=== PATIENT | male | born 1950 | race Caucasian/White ===

== ENCOUNTER → 2019-05-27 11:23 | Outpatient (BNVA) | payer MEDICARE, MEDICAID, SELFPAY | PROVIDERS: Family Provider Nurse Practitioner Family; PCP Nurse Practitioner Family; Visit Provider Nurse Practitioner Family | DX: J32.9 Chronic sinusitis, unspecified (principal); E11.9 Type 2 diabetes mellitus without complications; E55.9 Vitamin D deficiency, unspecified; N40.0 Benign prostatic hyperplasia without lower urinary tract symptoms; E78.5 Hyperlipidemia, unspecified; R19.7 Diarrhea, unspecified | CPT/HCPCS: 80053; 80061; 82306; 83036; 85025 ==

== ENCOUNTER → 2019-06-06 13:33 | Outpatient (BNVA) | payer MEDICARE, MEDICAID, SELFPAY | PROVIDERS: Family Provider Nurse Practitioner Family; PCP Nurse Practitioner Family; Visit Provider Nurse Practitioner Family | DX: E78.5 Hyperlipidemia, unspecified (principal) | CPT/HCPCS: 80061 ==

== ENCOUNTER → 2019-06-07 16:15 | Outpatient (BNVA) | payer MEDICARE, MEDICAID, SELFPAY | PROVIDERS: Family Provider Nurse Practitioner Family; PCP Nurse Practitioner Family; Visit Provider Nurse Practitioner Family | DX: E78.5 Hyperlipidemia, unspecified (principal); N40.0 Benign prostatic hyperplasia without lower urinary tract symptoms; E55.9 Vitamin D deficiency, unspecified | CPT/HCPCS: 80053; 82306 ==

== ENCOUNTER → 2019-06-27 11:20 | Outpatient (BNVA) | payer MEDICARE, MEDICAID, SELFPAY | PROVIDERS: Family Provider Nurse Practitioner Family; PCP Nurse Practitioner Family; Visit Provider Family Medicine | DX: R09.89 Other specified symptoms and signs involving the circulatory and respiratory systems (principal) | CPT/HCPCS: 71046 ==

== ENCOUNTER → 2019-06-28 13:14 | Outpatient (BNVA) | payer MEDICARE, MEDICAID, SELFPAY | PROVIDERS: Family Provider Nurse Practitioner Family; PCP Nurse Practitioner Family; Visit Provider Nurse Practitioner Family | DX: R09.89 Other specified symptoms and signs involving the circulatory and respiratory systems (principal); J18.9 Pneumonia, unspecified organism; R79.89 Other specified abnormal findings of blood chemistry | CPT/HCPCS: 80053; 85025 ==

== ENCOUNTER → 2019-07-01 11:15 | Outpatient (BNVA) | payer MEDICARE, MEDICAID, SELFPAY | PROVIDERS: Family Provider Nurse Practitioner Family; PCP Nurse Practitioner Family; Visit Provider Nurse Practitioner Family | DX: R09.89 Other specified symptoms and signs involving the circulatory and respiratory systems (principal); J18.9 Pneumonia, unspecified organism; R79.89 Other specified abnormal findings of blood chemistry; R94.5 Abnormal results of liver function studies | CPT/HCPCS: 86308; 86705; 86706; 86709; 86803; 87340 ==

== ENCOUNTER 2019-07-12 07:03 | Outpatient (CLI) | payer MEDICARE, MEDICAID, SELFPAY ==
--- NOTE | 2019-07-12 07:15 | US_ITS ---
WS: [id number] ABDOMINAL ULTRASOUND LIMITED REASON FOR VISIT: elevated liver enzymes TECHNIQUE: Grayscale and Doppler ultrasound examination of the abdomen. FINDINGS: Pancreas: No abnormalities. Abdominal aorta and IVC: No abnormalities. Liver: Liver measures 17.0 cm in length. Normal hepatopedal portal flow. Gallbladder: Gallbladder wall thickness measures 0.2 mm. No stones Right kidney: Right kidney measures 9.9 cm x 5.2 cm x 4.6 cm. No hydronephrosis or stones US/US liver [id number] IMPRESSION: Normal right upper quadrant ultrasound The liver is upper limits of normal.
== END 2019-07-12 07:04 | disposition home or self-care (01) ==
LOC: RAD 07:03
PROVIDERS: Family Provider Nurse Practitioner Family; PCP Nurse Practitioner Family; Visit Provider Nurse Practitioner Family
DX: R79.89 Other specified abnormal findings of blood chemistry (principal)
CPT/HCPCS: 76705

== ENCOUNTER → 2019-07-13 09:08 | Outpatient (BNVA) | payer MEDICARE, MEDICAID, SELFPAY | PROVIDERS: Family Provider Nurse Practitioner Family; PCP Family Medicine; Visit Provider Urology | DX: R79.89 Other specified abnormal findings of blood chemistry (principal); R97.20 Elevated prostate specific antigen [PSA]; N40.1 Benign prostatic hyperplasia with lower urinary tract symptoms | CPT/HCPCS: 81001; 84153 ==

== ENCOUNTER → 2019-08-12 12:01 | Outpatient (BNVA) | payer MEDICARE, MEDICAID, SELFPAY | PROVIDERS: Family Provider Nurse Practitioner Family; PCP Family Medicine; Visit Provider Internal Medicine | DX: R79.89 Other specified abnormal findings of blood chemistry (principal) | CPT/HCPCS: 80053 ==

== ENCOUNTER 2019-08-23 12:40 | Outpatient (CLI) | payer MEDICARE, MEDICAID, SELFPAY ==
--- NOTE | 2019-08-23 12:43 | XR_ITS ---
WS: [id number] XR chest 2V* [id number] REASON FOR EXAM: Cough FINDINGS: The lung gordon are hyper aerated with decreased vascularity in flattenings hemidiaphragm a re seen. The heart was normal. No pneumonia, pleural effusion, pulmonary edema, are pneumothorax. There is arteriosclerotic changes in the arch of the aorta. XR/XR chest 2V* [id number] IMPRESSION: Obstructive pulmonary disease.
[2019-08-24 17:30] LABS: Cat Dander (E1) Ige <0.10 kU/L; Cat Dander Class 0; Dog Dander (E5) Ige <0.10 kU/L; Dog Dander Class 0; Elm (T8) Ige <0.10 kU/L; Elm Class 0; English Plantain (W9) Ige 0.11 kU/L; English Plantain Class 0/1; Immunoglobulin E 35 kU/L (<OR=114); Lamb'S Quarters (Goose Foot) 0.11 kU/L; Lamb'S Quarters Class 0/1; Maple (Box Elder) (T1) Ige <0.10 kU/L; Maple Class 0; Oak (T7) Ige 0.13 kU/L; Oak Class 0/1; Ragweeed Class 0/1; Rough Marsh Elder (W16) Ige <0.10 kU/L; Rough Marsh Elder Class 0
[2019-08-25 18:01] LABS: Alternaria Alternata (M6) Ige <0.10 kU/L; Alternaria Class 0; Bermuda Class 0/1; Bermuda Grass (G2) Ige 0.12 kU/L; D. Farinae Class 0; Dermatophagoides Class 0; Dermatophagoides Farinae (D2) <0.10 kU/L; Dermatophagoides Pteronyssinus <0.10 kU/L; House Dust (Greer) (H1) Ige <0.10 kU/L; House Dust (Hollister- Stier) <0.10 kU/L; House Dust Class 0; Johnson Grass (G10) Ige 0.11 kU/L; Johnson Grass Cl 0/1; June Grass Class 0; June Grass(Kentucky Blue) (G8) <0.10 kU/L; Meadow Fescue (G4) Ige 0.11 kU/L; Meadow Fescue Class 0/1; Mucor Racemosus Class 0; Orchard Grass (Cocksfoot) (G3) 0.11 kU/L; Penicillium Class 0; Penicillium Notatum (M1) Ige <0.10 kU/L; Perennial Rye Grass Class 0/1; Sweet Vernal Class 0/1; Sweet Vernal Grass (G1) Ige 0.14 kU/L; Timothy Grass (G6) Ige 0.11 kU/L; Timothy Grass Class 0/1
[2019-08-25 19:50] LABS: Aspergillus Fumigatus, Igg Ab, 12.2 mg/L (<=102)
== END 2019-08-23 12:41 | disposition home or self-care (01) ==
LOC: RAD 12:40
PROVIDERS: PCP Family Medicine; Visit Provider Internal Medicine Critical Care Medicine
DX: R05 Cough (principal); J44.9 Chronic obstructive pulmonary disease, unspecified
CPT/HCPCS: 71046; 82785; 86003

== ENCOUNTER 2019-09-15 08:10 | Outpatient (CLI) | payer MEDICARE, MEDICAID, SELFPAY ==
--- NOTE | 2019-09-15 13:02 | PFTS_ITS ---
Date of Study:09/15/19 Date of Dictation: MECHANICS: Forced vital capacity (FVC) is normal. Forced expiratory volume in one second (FEV1) is normal. FEV1/FVC is normal. FLOW VOLUME LOOP: Normal. LUNG VOLUMES: Total lung capacity (TLC) is normal. Residual volume (RV) is increased. DIFFUSING CAPACITY FOR CARBON MONOXIDE: Normal. INTERPRETATION: The pulmonary function tests are normal. Lung volumes are consistent with mild air trapping. Gas exchange (DLCO) is normal. MTDD
== END 2019-09-15 08:11 | disposition home or self-care (01) ==
LOC: RT 08:14
PROVIDERS: PCP Family Medicine; Visit Provider Internal Medicine Critical Care Medicine
DX: R05 Cough (principal)
CPT/HCPCS: 94010; 94726; 94729

== ENCOUNTER → 2019-11-17 10:43 | Outpatient (BNVA) | payer MEDICARE, MEDICAID, SELFPAY | PROVIDERS: PCP Family Medicine; Visit Provider Internal Medicine | DX: R05 Cough (principal); R30.0 Dysuria | CPT/HCPCS: 80053; 81003; 87077; 87086; 87186 ==

== ENCOUNTER → 2020-06-08 08:53 | Outpatient (BNVA) | payer MEDICARE, MEDICAID, SELFPAY | PROVIDERS: PCP Family Medicine; Visit Provider Internal Medicine | DX: R19.7 Diarrhea, unspecified (principal) | CPT/HCPCS: 83630; 87493; 87506 ==

== ENCOUNTER → 2020-10-17 10:40 | Outpatient (BNVA) | payer MEDICARE, MEDICAID, SELFPAY | PROVIDERS: PCP Family Medicine; Visit Provider Internal Medicine | DX: E11.9 Type 2 diabetes mellitus without complications (principal); Z12.5 Encounter for screening for malignant neoplasm of prostate; Z13.220 Encounter for screening for lipoid disorders; K21.9 Gastro-esophageal reflux disease without esophagitis; R97.20 Elevated prostate specific antigen [PSA]; R79.89 Other specified abnormal findings of blood chemistry; E78.5 Hyperlipidemia, unspecified; Z12.11 Encounter for screening for malignant neoplasm of colon | CPT/HCPCS: 80061; G0103 ==

== ENCOUNTER → 2020-11-19 09:03 | Outpatient (BNVA) | payer MEDICARE, MEDICAID, SELFPAY | PROVIDERS: PCP Family Medicine; Visit Provider Internal Medicine | DX: Z01.812 Encounter for preprocedural laboratory examination (principal); Z12.11 Encounter for screening for malignant neoplasm of colon; Z20.822 Contact with and (suspected) exposure to COVID-19 | CPT/HCPCS: 87635 ==

== ENCOUNTER 2020-11-26 08:20 | Day surgery (SDC) | payer MEDICARE, MEDICAID, SELFPAY ==
[2020-11-21 15:49] VITALS: BMI 22.0
[2020-11-26 08:54] VITALS: BP 148/84; PULSE 54; RESP 16; TEMP 36.3; O2SAT 96
--- NOTE | 2020-11-26 08:57 | ANES.PREANE2 ---
Pre-Anesthetic Assessment Pre-Anesthetic Assessment: Height/Weight: Height 1.93 m Weight 82.1 kg Preop Diagnosis: screen Proposed Procedure: Operation Date: 11/26/20 09:30 Proposed Procedures p Colonoscopy 86651 Z12.11(Not Applicable) - Jose Kessler MD Was Beta Hermes taken within 24 hours: N/A Was Clonidine taken within 24 hours: N/A Social: Social History: No alcohol and No tobacco Exam: Pre-Anes Outpt Exam: alert, oriented x 3, clear to auscultation bilaterally and regular rate & rhythm Airway: Submandibular: WNL Cervical ROM: WNL MP: 2 Dentition: Chipped Additional comments: [place] CV/HEM: CV/HEM: HTN GI: GI: GERD Metabolic: Metabolic: DM and Hyperlipidemia Anesthetic Plan: ASA status: 3 Anesthesia: MAC Risk of > 500 ml blood loss (7ml/kg in children): No PFSH Anesthesia PFSH: Medical History BPH NOS w ur obs/LUTS Diabetes mellitus Elevated PSA Erectile dysfunction Hyperlipidemia Low testosterone Vitamin D deficiency Family History Father , age 35 Stroke Grandmother Diabetes Denies family history of Clotting disorder Bleeding disorder Social History Smoking and tobacco status: never smoked Second hand smoke exposure: No Alcohol intake: never Lives independently: Yes Household members: children Marital status: Current occupational status: employed Current occupation: [employer] History of recent travel: No Current gender identity: Male Data Anesthesia Cardiac Studies: No Data to Display
--- NOTE | 2020-11-26 08:59 | P.HP_ITS ---
Same Day Surgery H&P Indication for Procedure/HPI DATE OF PROCEDURE: November 26, 2020 CHIEF COMPLAINT/INDICATIONFOR SURGICAL PROCEDURE: Diarrhea PREOP DIAGNOSIS: screen PLANNED PROCEDRUE: Operation Date: 11/26/20 09:30 Proposed Procedures p Colonoscopy 93147 Z12.11(Not Applicable) - Jose Kessler MD Medications/Allergies* Home Medications Medication Instructions Recorded Confirmed Type cholecalciferol (vitamin D3) 50 50 mcg PO DAILY 07/13/19 11/26/20 History mcg (2,000 unit) capsule multivitamin 1 tab PO DAILY 11/21/20 11/26/20 History tamsulosin 0.4 mg PO DAILY 11/21/20 11/26/20 History Allergies/Adverse Reactions Allergy/AdvReac Type Severity Reaction Status Date / Time No Known Allergies Allergy Verified 11/21/20 15:50 Pertinent History/Comorbid Conditions* Medical History (Updated 05/24/20 @ 11:26 by Jose Kessler MD) BPH NOS w ur obs/LUTS Diabetes mellitus Elevated PSA Erectile dysfunction Hyperlipidemia Low testosterone Vitamin D deficiency Family History (Updated 05/27/19 @ 10:06 by Mariela Dockery LPN, RT) Father, age 35 Diabetes Grandmother Stroke Father Denies family history of Clotting disorder Bleeding disorder Social History Smoking and tobacco status: never smoked Second hand smoke exposure: No Alcohol intake: never Lives independently: Yes Household members: children Marital status: Current occupational status: employed Current occupation: [employer] History of recent travel: No Current gender identity: Male Pertinent Exam Findings alert, oriented x 3, clear to auscultation bilaterally, regular rate & rhythm, operative site marked and procedure specific exam findings Recommendations Surgery/Procedure today Coding Level of Care Code Acute 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
[2020-11-26] MEDS: sodium chloride 0.9% 1,000 ML 30 ML IV (09:12)
[2020-11-26 09:46] VITALS: BP 90/54; PULSE 60; RESP 16; TEMP 36.1; O2SAT 94
[2020-11-26 09:52] VITALS: BP 106/55
[2020-11-26 10:10] VITALS: BP 137/91; PULSE 50; O2SAT 96
--- NOTE | 2020-11-26 15:33 | ANE.PACU2 ---
Inpatient post-anesthesia follow up: Airway intact: Yes Vital signs: Temperature 97 F Pulse Rate 50 Respiratory Rate 16 Blood Pressure 137/91 Pulse Oximetry 96 Oxygen Delivery Me thod Room Air Oxygen Flow Rate Fraction of Inspir ed Oxygen Hydration adequate: Yes Nausea and vomiting: No Pain level: 1 Mental status: Baseline
== END 2020-11-26 10:25 | disposition home or self-care (01) ==
PROVIDERS: PCP Internal Medicine; Visit Provider Internal Medicine
PROC: 0DJD8ZZ Inspection of Lower Intestinal Tract, Via Natural or Artificial Opening Endoscopic (ICD-10-PCS; CPT 45378; principal; 2020-11-26 09:30)
DX: R19.7 Diarrhea, unspecified (principal); K57.30 Diverticulosis of large intestine without perforation or abscess without bleeding; N40.1 Benign prostatic hyperplasia with lower urinary tract symptoms; N13.8 Other obstructive and reflux uropathy; E11.9 Type 2 diabetes mellitus without complications; E78.5 Hyperlipidemia, unspecified; E55.9 Vitamin D deficiency, unspecified; I10 Essential (primary) hypertension; K21.9 Gastro-esophageal reflux disease without esophagitis
CPT/HCPCS: 96360; G0121; J2704; J7030

== ENCOUNTER → 2021-01-14 11:17 | Outpatient (BNVA) | payer MEDICARE, MEDICAID, SELFPAY | PROVIDERS: PCP Internal Medicine; Visit Provider Urology | DX: N40.1 Benign prostatic hyperplasia with lower urinary tract symptoms (principal); R79.89 Other specified abnormal findings of blood chemistry; R97.20 Elevated prostate specific antigen [PSA] | CPT/HCPCS: 81003; 87077; 87086; 87184 ==

== ENCOUNTER → 2021-08-21 10:51 | Outpatient (BNVA) | payer MEDICARE, MEDICAID, SELFPAY | PROVIDERS: PCP Internal Medicine; Visit Provider Otolaryngology | DX: H66.91 Otitis media, unspecified, right ear (principal); H72.2X1 Other marginal perforations of tympanic membrane, right ear; H90.11 Conductive hearing loss, unilateral, right ear, with unrestricted hearing on the contralateral side | CPT/HCPCS: 99203 ==

== ENCOUNTER → 2021-09-23 09:34 | Outpatient (BNVA) | payer MEDICARE, MEDICAID, SELFPAY | PROVIDERS: PCP Internal Medicine; Visit Provider Otolaryngology | DX: H66.91 Otitis media, unspecified, right ear (principal); H72.2X1 Other marginal perforations of tympanic membrane, right ear; H90.11 Conductive hearing loss, unilateral, right ear, with unrestricted hearing on the contralateral side | CPT/HCPCS: 99213 ==

== ENCOUNTER → 2021-11-26 09:27 | Outpatient (BNVA) | payer MEDICARE, MEDICAID, SELFPAY | PROVIDERS: PCP Internal Medicine; Visit Provider Otolaryngology | DX: H72.2X1 Other marginal perforations of tympanic membrane, right ear (principal); H90.11 Conductive hearing loss, unilateral, right ear, with unrestricted hearing on the contralateral side; H66.91 Otitis media, unspecified, right ear | CPT/HCPCS: 99213 ==

== ENCOUNTER → 2022-02-21 08:57 | Outpatient (BNVA) | payer MEDICARE, MEDICAID, SELFPAY | PROVIDERS: PCP Internal Medicine; Visit Provider Otolaryngology | DX: H66.91 Otitis media, unspecified, right ear (principal); H72.2X1 Other marginal perforations of tympanic membrane, right ear; H90.11 Conductive hearing loss, unilateral, right ear, with unrestricted hearing on the contralateral side | CPT/HCPCS: 99213 ==

== ENCOUNTER → 2022-03-24 09:20 | Outpatient (BNVA) | payer MEDICARE, MEDICAID, SELFPAY | PROVIDERS: PCP Internal Medicine; Visit Provider Otolaryngology | DX: H66.91 Otitis media, unspecified, right ear (principal); H72.2X1 Other marginal perforations of tympanic membrane, right ear; H90.11 Conductive hearing loss, unilateral, right ear, with unrestricted hearing on the contralateral side | CPT/HCPCS: 99213 ==

== ENCOUNTER → 2022-04-23 11:16 | Outpatient (BNVA) | payer MEDICARE, MEDICAID, SELFPAY | PROVIDERS: PCP Internal Medicine; Visit Provider Otolaryngology | DX: H66.91 Otitis media, unspecified, right ear (principal); H72.2X1 Other marginal perforations of tympanic membrane, right ear; H90.11 Conductive hearing loss, unilateral, right ear, with unrestricted hearing on the contralateral side | CPT/HCPCS: 99213 ==

== ENCOUNTER → 2022-05-14 10:58 | Outpatient (BNVA) | payer MEDICARE, MEDICAID, SELFPAY | PROVIDERS: PCP Internal Medicine; Visit Provider Otolaryngology | DX: H66.91 Otitis media, unspecified, right ear (principal); H72.2X1 Other marginal perforations of tympanic membrane, right ear; H90.11 Conductive hearing loss, unilateral, right ear, with unrestricted hearing on the contralateral side | CPT/HCPCS: 99213 ==

== ENCOUNTER → 2022-05-27 09:21 | Outpatient (BNVA) | payer MEDICARE, MEDICAID, SELFPAY | PROVIDERS: PCP Internal Medicine; Visit Provider Otolaryngology | DX: H90.11 Conductive hearing loss, unilateral, right ear, with unrestricted hearing on the contralateral side (principal); H66.91 Otitis media, unspecified, right ear; H72.2X1 Other marginal perforations of tympanic membrane, right ear | CPT/HCPCS: 99213 ==

== ENCOUNTER 2022-06-16 15:25 | Outpatient (CLI) | payer MEDICARE, MEDICAID, SELFPAY ==
--- NOTE | 2022-06-16 16:30 | CT_ITS ---
WS: [id number] CT TEMPORAL BONES TECHNIQUE: Noncontrast CT of the temporal bones with coronal and sagittal reformatted images. CLINICAL INFORMATION: concerns for mastoiditis COMPARISON: None. DLP: 359.[address] scans at [facility] use at least one of these dose optimization techniques: automated e xposure control; mA and/or kV adjustment per patient size (includes targeted exams where dose is matc hed to clinical indication); or iterative reconstruction. FINDINGS: LEFT mastoid air cells well aerated. Partial opacification RIGHT mastoid tip. Mild mucosal thickening in the paranasal sinuses. Mild polypoid mucosal thickening in the nasal turbinates. Small retention cyst or polyp RIGHT maxillary sinus measuring 1.9 CM. Mild mucosal thickening in the LEFT g reater than RIGHT maxillary sinuses. Small amount of fluid in the sphenoid sinuses. Normal posterior nasopharynx. Vascular calcification. RIGHT: Partial opacification RIGHT mastoid air cells with sclerosis the mastoid tip. Mild coalescence of the mastoid septae compatible with chronic infection of mastoiditis. Thickening of the tympanic membrane with retraction. Soft tissue thickening in the epitympanum and Prussak's space about the ossicles. M ucosal thickening or cerumen in the bony before meals. Scutum is normal in appearance. No erosions. M ucosal thickening at the stapes footplate mesotympanum and hypotympanum.Normal tegmen tympani. Semici rcular canals and cochlea are normal in appearance. Normal inner ear structures. Normal vestibular aq ueduct. Facial nerve recess is normal. LEFT: Mastoid air cells are well aerated. Normal external auditory canal. Ossicles are normal in appearance . Middle ear is well aerated. Normal tegmen tympani. Semicircular canals and cochlea are normal in ap pearance. Prussak's space is normal. Normal inner ear structures. Normal vestibular aqueduct. Facial nerve recess is normal. CT/CT temporal bone wo con* [id number] IMPRESSION: 1. Chronic sclerosis RIGHT mastoid air cells with partial opacification compat ible with chronic or recurrent mastoiditis. 2. Partial opacification RIGHT middle ear with soft tissue thickening and retr action of the tympanic membrane. Soft tissue thickening extends into the epitym panum and Prussak's space likely inflammatory. 3. Lobulated soft tissue thickening in the bony EAC some of which may be due t o impacted cerumen. Recommend direct visualization. This is along the floor of the bony EAC. 4. Normal RIGHT ossicles and scutum. 5. LEFT mastoid air cells well aerated. Normal LEFT middle ear and inner ear s tructures. 6. Mild polypoid mucosal thickening involving the nasal turbinates with a smal l amount of fluid along the RIGHT frontoethmoidal recess. Trace fluid in the sp henoid sinuses. 7. Retention cyst or polyp RIGHT maxillary sinus measuring 19 mm.
== END 2022-06-16 15:26 | disposition home or self-care (01) ==
LOC: RAD 15:30
PROVIDERS: PCP Otolaryngology; Visit Provider Otolaryngology
DX: H90.11 Conductive hearing loss, unilateral, right ear, with unrestricted hearing on the contralateral side (principal); H66.91 Otitis media, unspecified, right ear
CPT/HCPCS: 70480

== ENCOUNTER → 2022-06-24 16:14 | Outpatient (BNVA) | payer MEDICARE, MEDICAID, SELFPAY | PROVIDERS: PCP Internal Medicine; Visit Provider Otolaryngology | DX: H70.11 Chronic mastoiditis, right ear (principal); H90.11 Conductive hearing loss, unilateral, right ear, with unrestricted hearing on the contralateral side; H72.2X1 Other marginal perforations of tympanic membrane, right ear; H66.91 Otitis media, unspecified, right ear | CPT/HCPCS: 99215 ==

== ENCOUNTER 2022-07-24 23:09 | Emergency (ER) | payer MEDICARE, MEDICAID, SELFPAY ==
[2022-07-24 23:11] VITALS: BP 153/79; PULSE 53; RESP 16; TEMP 36.9; O2SAT 97
--- NOTE | 2022-07-24 23:33 | W.ED.NAVMDI ---
HPI - Nausea/Vomiting/Diarrhea General: Chief complaint: Nausea/Vomiting/Diarrhea Stated complaint: ear pain today, n/v, high BS Time Seen by Provider: 07/24/22 23:13 Source: patient Mode of arrival: ambulatory Limitations: no limitations History of Present Illness: 71-year-old male had ear surgery today he states since then he has been having severe vertigo with nausea vomiting. He states he is also had a right facial droop. Does have some ear pain he denies any fever denies any headache. He states his vertigo is much worse with any movement. He has had vomiting with his vertigo. Associated nausea: Yes Associated symtoms: Reports nausea; Denies chest pain or dysuria Review of Systems Const: Reports: change in appetite; Denies: fever(s) or chills Eyes: Denies: blurry vision ENMT: Denies: throat pain or dental pain Card: Denies: chest pain Resp: Denies: dyspnea GI: Reports: nausea and vomiting; Denies: abdominal pain or diarrhea : Denies: dysuria Musc: Denies: neck pain or back pain Skin/Breast: Denies: rash Neuro: Reports: vertigo PFSH ED PFSH: Medical History BPH NOS w ur obs/LUTS Diabetes mellitus Elevated PSA Erectile dysfunction Hyperlipidemia Low testosterone Vitamin D deficiency Surgical History Hx of appendectomy Hx of rhinoplasty Hx of wisdom tooth extraction Family History Father , age 35 Stroke Grandmother Diabetes Denies family history of Clotting disorder Bleeding disorder Social History Smoking and tobacco status: never smoked Second hand smoke exposure: No Alcohol intake: never Substance/Drug Use: never Lives independently: Yes Household members: children Marital status: Current occupational status: employed Current occupation: [employer] Do you think of yourself as: Straight/Heterosexual Current gender identity: Male Physical Exam Const: COMMON NORMALS: patient oriented x3 HENMT: COMMON NORMALS: normocephalic and atraumatic HEAD & SCALP: normocephalic and atraumatic Eye: COMMON NORMALS: Equal, round and reactive pupils present and EOMs intact bilaterally PUPIL: Yes Equal, round and reactive pupils present Neck/C-Spine: COMMON NORMALS: full ROM and supple Chest: COMMONS NORMALS: normal inspection of the chest and normal palpation of entire chest wall Resp: COMMON NORMALS: normal respiratory effort, No retractions, No use of accessory muscles and clear to auscultation bilaterally AUSCULTATION: clear to auscultation bilaterally Cardio: COMMON NORMALS: regular rate, regular rhythm and No murmurs present (Cardio) RATE: regular rate RHYTHM: regular rhythm GI: COMMON NORMALS: Normal to inspection, nondistended, normoactive bowel sounds present, Soft to palpation, non-tender and no masses PALPATION: Yes Soft to palpation Extremity: COMMON NORMALS: normal to inspection and full ROM Neuro: COMMON NORMALS: patient oriented x3 and moves all extremities OTHER: right sided facial droop Psych: COMMON NORMALS: mental status grossly normal, Normal thought process present and cooperative THOUGHT PROCESS: Normal thought process present Skin: COMMON NORMALS: no rashes or lesions noted and no wounds GENERAL SKIN EXAM: no rashes or lesions noted Course Vital Signs: Vital signs: Vital Signs Temperature 98.5 F 07/24/22 23:11 Pulse Rate 57 L 07/25/22 00:30 Respiratory Rate 16 07/25/22 00:30 Blood Pressure 136/68 07/25/22 00:30 Pulse Oximetry 96 07/25/22 00:30 Oxygen Delivery Me thod Room Air 07/24/22 23:11 MDM - Nausea/Vomiting/Diarrhea Medical Decision Making Patient presents here with vertigo along with facial palsy on the right. This is likely from his surgery I did speak to Dr. Pittman he feels improved here after Valium and Zofran we will prescribe Zofran Valium and steroids for home he is to follow-up with ENT his blood work here is normal. Medical Records I reviewed the patient's medical records. Lab Data I reviewed the patient's lab results. 07/24/22 23:43 07/24/22 23:43 Laboratory Results WBC 7.2 10^3/uL (4.0-10.0) 07/24/22 23:43 RBC 5.03 10^6/uL (4.1-5.3) 07/24/22 23:43 Hgb 14.8 g/dL (11.7-16.6) 07/24/22 23:43 Hct 43.8 % (42.0-52.0) 07/24/22 23:43 MCV 87.1 fl (80-94) 07/24/22 23:43 MCH 29.4 pg (28.0-34.0) 07/24/22 23:43 MCHC 33.8 g/dL (30.0-36.0) 07/24/22 23:43 RDW 11.7 % (12.1-15.1) L 07/24/22 23:43 Plt Count 181 10^3/cmm (130-400) 07/24/22 23:43 MPV 10.8 fL (7.4-10.4) H 07/24/22 23:43 Neut % (Auto) 91.8 % 07/24/22 23:43 Lymph % (Auto) 5.4 % 07/24/22 23: [place] % (Auto) 2.5 % 07/24/22 23:43 Eos % (Auto) 0.0 % 07/24/22 23:43 Baso % (Auto) 0.0 % 07/24/22 23:43 Neut # (Auto) 6.64 10^3/uL (1.8-7.7) 07/24/22 23: Lymph # (Auto) 0.4 10^3/uL (0.8-4.8) L 07/24/22 23:43 [place] # (Auto) 0.2 10^3/uL (0.2-0.9) 07/24/22 23: Eos # (Auto) 0.0 10^3/uL (0.0-0.8) 07/24/22 23:43 Baso # (Auto) 0.0 10^3/uL (0.0-0.1) 07/24/22: Nucleated RBC % (auto) 0 % 07/24/22: Nucleated RBCs # 0.0 /100WBC 07/24/22 23:43 Sodium 136 mmol/L (136-145) 07/24/22 23: Potassium 4.7 mmol/L (3.5-5.1) 07/24/22:43 Chloride 100 mmol/L (98-107) 07/24/22 23:43 Carbon Dioxide 20 mmol/L (22-29) L 07/24/22 23:43 Anion Gap 20.7 (5-19) H 07/24/22 23:43 BUN 15 mg/dL (8-23) 07/24/22 23:43 Creatinine 0.6 mg/dL (0.7-1.2) L 07/24/22 23:43 GFR Calculation 133.2 mL/min (90-130) H 07/24/22 23:43 Glucose 224 mg/dL (65-115) H 07/24/22 23:43 POC Glucose 237 mg/dL (70-110) H 07/24/22 23:42 Calculated Osmolality 290 mOsm/kg (285-295) 07/24/22 23:43 Calcium 8.6 mg/dL (8.5-10.5) 07/24/22 23:43 Total Bilirubin 0.4 mg/dL (0.15-1.2) 07/24/22 23:43 AST 25 U/L (0-40) 07/24/22 23:43 ALT 27 U/L (0-41) 07/24/22 23:43 Alkaline Phosphatase 79 U/L (40-130) 07/24/22 23:43 Total Protein 6.5 g/dL (6.6-8.7) L 07/24/22 23:43 Albumin 4.0 g/dL (3.5-5.2) 07/24/22 23:43 Globulin 2.5 g/dL (1.3-4.6) 07/24/22 23:43 Lipase 21 U/L (13-60) 07/24/22 23:43 Discharge Plan Discharge Patient Disposition: Home Clinical Impression: Vertigo, Pina's palsy Condition: Stable Prescriptions: New prednisone 50 mg tablet 50 mg PO DAILY Qty: 5 0RF ondansetron 4 mg tablet,disintegrating 4 mg PO Q6H PRN (Reason: nausea and vomiting) Qty: 14 0RF Valium 2 mg tablet 2 mg PO TID PRN (Reason: vertigo) Qty: 10 0RF No Action cholecalciferol (vitamin D3) 250 mcg (10,000 unit) capsule 250 mcg PO DAILY vitamin E (dl, acetate) 45 mg (100 unit) capsule 45 mg PO DAILY Fish Oil 120-180-500 mg capsule 1 cap PO DAILY multivitamin tablet 1 tab PO DAILY insulin degludec [Tresiba FlexTouch U-200] 200 unit/mL (3 mL) insulin pen 20 unit SUBCUT DAILY tramadol 50 mg tablet 50 mg PO Q6H PRN (Reason: pain) Qty: 30 0RF Discharge Orders: Discharge ED (Routine); Ordered 07/25/22 Ordered By: Benjamin Golden Referrals: Jose Kessler MD [Primary Care Provider] - Tyron Pittman MD [Physician] - 1-3 days Discharge Diet: Advance as tolerated Discharge Activity: Resume usual activity Patient Instructions: Opioid Safety, Pain Management Coding Level of Care Code ED 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
[2022-07-24] MEDS: ondansetron 2 mg/ML SDV 2 mL 4 MG IVP (23:39)
[2022-07-24] MEDS: diazePAM 2 mg Tablet PO (23:39)
[2022-07-24 23:53] LABS: Hematocrit 43.8 % (42.0-52.0); Hemoglobin 14.8 g/dL (11.7-16.6); Lymphocytes # 0.4 10^3/uL (0.8-4.8); Lymphocytes % 5.4 %; Mean Corpuscular HGB Conc 33.8 g/dL (30.0-36.0); Mean Corpuscular Hemoglobin 29.4 pg (28.0-34.0); Mean Corpuscular Volume 87.1 fl (80-94); Mean Platelet Volume 10.8 fL (7.4-10.4); Monocytes # 0.2 10^3/uL (0.2-0.9); Monocytes % 2.5 %; Neutrophils # 6.64 10^3/uL (1.8-7.7); Neutrophils % 91.8 %; Nucleated Red Blood Cells % 0 %; Platelet Count 181 10^3/cmm (130-400); Red Blood Count 5.03 10^6/uL (4.1-5.3); Red Cell Distribution Width 11.7 % (12.1-15.1); White Blood Count 7.2 10^3/uL (4.0-10.0)
[2022-07-25 00:05] VITALS: PULSE 52; RESP 16; O2SAT 96
[2022-07-25 00:06] LABS: Glucose Point of Care 237 mg/dL (70-110)
[2022-07-25 00:08] LABS: Alanine Aminotransferase 27 U/L (0-41); Alkaline Phosphatase 79 U/L (40-130); Blood Urea Nitrogen 15 mg/dL (8-23); Calcium 8.6 mg/dL (8.5-10.5); Carbon Dioxide 20 mmol/L (22-29); Chloride 100 mmol/L (98-107); Globulin 2.5 g/dL (1.3-4.6); Glomerular Filtration Rate 133.2 mL/min (90-130); Glucose 224 mg/dL (65-115); Lipase 21 U/L (13-60); Osmolality Calculated 290 mOsm/kg (285-295); Sodium 136 mmol/L (136-145); Total Bilirubin 0.4 mg/dL (0.15-1.2); Total Protein 6.5 g/dL (6.6-8.7)
[2022-07-25 00:16] LABS: Anion Gap 20.7 (5-19); Aspartate Amino Transferase 25 U/L (0-40); Potassium 4.7 mmol/L (3.5-5.1)
[2022-07-25] MEDS: predniSONE 20 mg Tablet 60 MG PO (00:23)
[2022-07-25] MEDS: sodium chloride 0.9% 1,000 ML 999 ML IV (00:24)
[2022-07-25 00:30] VITALS: BP 136/68; PULSE 57; RESP 16; O2SAT 96
[2022-07-25 00:47] VITALS: BP 136/68; PULSE 57; RESP 16; TEMP 36.9; O2SAT 96
[2022-07-25 01:14] VITALS: BP 129/55; PULSE 66; RESP 16; O2SAT 100
== END 2022-07-25 01:15 | disposition home or self-care (01) ==
PROVIDERS: Emergency Provider Emergency Medicine; PCP Internal Medicine
DX: R42 Dizziness and giddiness (principal); G51.0 Bell's palsy; E11.9 Type 2 diabetes mellitus without complications; E78.5 Hyperlipidemia, unspecified; H70.11 Chronic mastoiditis, right ear; H90.11 Conductive hearing loss, unilateral, right ear, with unrestricted hearing on the contralateral side; H72.2X1 Other marginal perforations of tympanic membrane, right ear; H66.91 Otitis media, unspecified, right ear; I10 Essential (primary) hypertension; Z79.4 Long term (current) use of insulin; E55.9 Vitamin D deficiency, unspecified
CPT/HCPCS: 36415; 36416; 51702; 80048; 80053; 82962; 83690; 85025; 96361; 96374; 99284; J0171; J0330; J0690; J1100; J1200; J2405; J2704; J2710; J3010; J3490; J7030; J7512

== ENCOUNTER → 2022-08-01 10:03 | Outpatient (BNVA) | payer MEDICARE, MEDICAID, SELFPAY | PROVIDERS: PCP Internal Medicine; Visit Provider Otolaryngology | DX: Z48.89 Encounter for other specified surgical aftercare (principal); H70.11 Chronic mastoiditis, right ear; H66.91 Otitis media, unspecified, right ear; H72.2X1 Other marginal perforations of tympanic membrane, right ear; H90.11 Conductive hearing loss, unilateral, right ear, with unrestricted hearing on the contralateral side; R42 Dizziness and giddiness; G51.0 Bell's palsy | CPT/HCPCS: 99024 ==

== ENCOUNTER → 2022-08-06 14:31 | Outpatient (BNVA) | payer MEDICARE, MEDICAID, SELFPAY | PROVIDERS: PCP Internal Medicine; Visit Provider Otolaryngology | DX: Z48.89 Encounter for other specified surgical aftercare (principal) | CPT/HCPCS: 99024 ==

== ENCOUNTER → 2022-09-05 10:54 | Outpatient (BNVA) | payer MEDICARE, MEDICAID, SELFPAY | PROVIDERS: PCP Internal Medicine; Visit Provider Otolaryngology | DX: Z48.89 Encounter for other specified surgical aftercare (principal); R29.810 Facial weakness; R47.81 Slurred speech; H90.11 Conductive hearing loss, unilateral, right ear, with unrestricted hearing on the contralateral side; H93.11 Tinnitus, right ear | CPT/HCPCS: 99024 ==

== ENCOUNTER 2022-09-19 09:33 | Outpatient (CLI) | payer MEDICARE, MEDICAID, SELFPAY ==
--- NOTE | 2022-09-19 09:45 | MR_ITS ---
WS: [id number] MRI HEAD WITH CONTRAST WITH ATTENTION TO THE INTERNAL AUDITORY CANALS TECHNIQUE: Sagittal T1, T2 axial, T2 axial flair, axial susceptibility weighted imaging, axial diffus ion weighted images, and coronal T2 images were obtained. Pre and post T1 axial and post T1 coronal i mages. ADC and FSPGR images. Post gadolinium images with attention to the internal auditory canals. A xial fiesta imaging. CLINICAL INFORMATION: slurred speach abd facail droop following surgery COMPARISON: CT June 16, 2022 FINDINGS: No evidence of restricted diffusion to suggest acute ischemia. Ventricular system and basal cisterns are patent. Mild small vessel changes. Mild parenchymal volume loss. Mild small vessel changes in the l[place]h. Normal posterior fossa. Tiny chronic lacunar infarcts RIGHT cerebellum. Normal vascular flow v oids at the skull base. No extra-axial fluid collections. Mild mucosal thickening ethmoid air cells. Small retention cyst or polyp RIGHT maxillary sinus measuring 1.8 cm. Normal posterior nasopharynx an d parapharyngeal fat. No evidence of restricted diffusion to suggest acute ischemia. No hemosiderin o n the susceptibly weighted images. No hemosiderin on the susceptibly weighted images. Normal optic chiasm and pituitary infundibulum. No rmal cavernous sinuses and Meckel's cave. Temporal lobes hippocampal formations are normal in appeara nce. LEFT mastoid air cells are well aerated. Recent postoperative changes RIGHT mastoidectomy compared to previous CT. Postoperative changes and f luid in the mastoidectomy defect. Fluid opacification RIGHT middle ear. Proximal 7th and 8th cranial nerves are normal in appearance. Normal trigeminal nerve root entry zone s. No evidence of enhancing IAC or CP angle mass. Peripheral enhancement in the mastoidectomy defect. Small amount of enhancement involving the RIGHT 7th cranial nerve cochlea with a small amount of enh ancement involving the semicircular canals likely postoperative. No abnormal intracranial enhancement. Normal dural venous sinuses. MR/MR iac's wo/w con* [id number] IMPRESSION: 1. No evidence of restricted diffusion to suggest acute ischemia. 2. Mild small vessel changes with mild parenchymal volume loss. 3. Recent postoperative changes RIGHT mastoidectomy with mastoidectomy bowl. F luid within the mastoidectomy defect and fluid opacification RIGHT middle ear. 4. Enhancement involving the RIGHT tympanic and labyrinthine segments of the f acial nerve likely reactive postoperative mastoidectomy. This also can be seen with Pina's palsy or less likely [place] in the appropriate clinical settin g. No significant enhancement in the fundal tuft. 5. No other acute findings.
[2022-09-19] MEDS: gadobenate dimeglumine 20 mL vial IV (10:55)
== END 2022-09-19 09:34 | disposition home or self-care (01) ==
PROVIDERS: PCP Internal Medicine; Visit Provider Otolaryngology
DX: R47.81 Slurred speech (principal); R29.810 Facial weakness; I67.89 Other cerebrovascular disease
CPT/HCPCS: 70553; A9577

== ENCOUNTER → 2022-10-06 11:15 | Outpatient (BNVA) | payer MEDICARE, MEDICAID, SELFPAY | PROVIDERS: PCP Internal Medicine; Visit Provider Otolaryngology | DX: Z48.89 Encounter for other specified surgical aftercare (principal); G51.0 Bell's palsy | CPT/HCPCS: 99213 ==

== ENCOUNTER → 2022-11-05 10:30 | Outpatient (BNVA) | payer MEDICARE, MEDICAID, SELFPAY | PROVIDERS: PCP Internal Medicine; Visit Provider Otolaryngology | DX: G51.0 Bell's palsy (principal); H70.11 Chronic mastoiditis, right ear; H90.11 Conductive hearing loss, unilateral, right ear, with unrestricted hearing on the contralateral side | CPT/HCPCS: 99213 ==

== ENCOUNTER 2022-11-12 14:04 | Outpatient (CLI) | payer MEDICARE, MEDICAID, SELFPAY ==
--- NOTE | 2022-11-12 14:30 | MR_ITS ---
WS: [id number] MRI BRAIN WITH HIGH-RESOLUTION IMAGING THROUGH THE INTERNAL AUDITORY CANALS WITHOUT AND WITH CONTRAST HISTORY: facial weakness on right side of face- COMPARISON: 09/19/2022 TECHNIQUE: Multiplanar, multisequence imaging is performed through the brain. Additional 3 mm imaging performed in multiple planes through the internal auditory canal. Postcontrast imaging with 17 ml's of MultiHance. No acute intracranial hemorrhage, midline shift, edema or mass effect. Mild small vessel ischemic changes and mild atrophy. Similar to the prior study with no progression. No acute hemorrhage. Ventricles and extra-axial spaces are normal. No inferior displacement of cerebellar tonsils. Clivus and pituitary gland are normal. Internal and external auditory canals: 7 and 8 cranial nerves are negative. No enhancement. Previousl y described enhancement along the RIGHT 7th cranial nerve cochlea is not definitely appreciated on to day's study. There is slightly more motion artifact on today's examination. This will limit evaluatio n for subtle areas of enhancement. The inner ear ossicles are not as well visualized on today's exami nation and are being obscured by the postoperative changes and fluid at the mastoidectomy site. Cerebellopontine angles: Normal. Paranasal sinuses: Normal. Mastoid air cells: Reidentified are the postoperative changes of a RIGHT mastoidectomy. Increased flu id and T2 signal at the resection site. Fluid extends into the middle ear. The amount of fluid and in creased T2 postoperative single at the mastoidectomy site and along the inner ear are mildly progress ed since 09/19/2022. Postop changes extend to the middle ear ossicles and middle ear ossicles are less distinct. Calvarium and scalp: Normal. Visualized [place] and dural venous sinuses demonstrate no abnormality. IMPRESSION: 1. Status post RIGHT mastoidectomy. Increased T2 signal postoperative changes at the mastectomy site appears mildly progressed since 09/19/2022. Less distinction of the inner ear ossicles on the RIGHT du e to the adjacent fluid and motion artifact on today's exam. 2. No obvious enhancement along the facial nerve is appreciated today. 3. No acute infarct and no enhancing mass. 4. Mild small vessel ischemic disease and atrophy.
[2022-11-12] MEDS: gadobenate dimeglumine 20 mL vial IV (15:33)
== END 2022-11-12 14:05 | disposition home or self-care (01) ==
PROVIDERS: PCP Internal Medicine; Visit Provider Otolaryngology
DX: G51.0 Bell's palsy (principal); H70.11 Chronic mastoiditis, right ear; H90.11 Conductive hearing loss, unilateral, right ear, with unrestricted hearing on the contralateral side; I67.89 Other cerebrovascular disease; Z90.89 Acquired absence of other organs
CPT/HCPCS: 70553; A9577

== ENCOUNTER → 2022-11-14 11:20 | Outpatient (BNVA) | payer MEDICARE, MEDICAID, SELFPAY | PROVIDERS: PCP Internal Medicine; Visit Provider Otolaryngology | DX: Z09 Encounter for follow-up examination after completed treatment for conditions other than malignant neoplasm (principal); G51.0 Bell's palsy | CPT/HCPCS: 99213 ==

== ENCOUNTER → 2022-12-15 11:00 | Outpatient (BNVA) | payer MEDICARE, MEDICAID, SELFPAY | PROVIDERS: PCP Internal Medicine; Visit Provider Otolaryngology | DX: G51.0 Bell's palsy (principal); H70.11 Chronic mastoiditis, right ear; H90.11 Conductive hearing loss, unilateral, right ear, with unrestricted hearing on the contralateral side; H72.2X1 Other marginal perforations of tympanic membrane, right ear; H66.91 Otitis media, unspecified, right ear | CPT/HCPCS: 99213 ==

== ENCOUNTER → 2023-01-13 08:09 | Outpatient (BNVA) | payer MEDICARE, MEDICAID, SELFPAY | PROVIDERS: PCP Internal Medicine; Visit Provider Otolaryngology | DX: G51.0 Bell's palsy (principal); H70.11 Chronic mastoiditis, right ear; H90.11 Conductive hearing loss, unilateral, right ear, with unrestricted hearing on the contralateral side; H60-H95 Diseases of the ear and mastoid process | CPT/HCPCS: 99213 ==

== ENCOUNTER 2023-03-18 11:47 | Outpatient (CLI) | payer MEDICARE, MEDICAID, OTHER, SELFPAY ==
--- NOTE | 2023-03-18 11:52 | CT_ITS ---
WS: [id number] CT TEMPORAL BONES TECHNIQUE: Noncontrast CT of the temporal bones with coronal and sagittal reformatted images. CLINICAL INFORMATION: CONDUCTIVE HEARING LOSS,UNSPECIFIED COMPARISON: CT 06/16/2022 DLP: 336.[address] scans at [facility] use at least one of these dose optimization techniques: automated e xposure control; mA and/or kV adjustment per patient size (includes targeted exams where dose is matc hed to clinical indication); or iterative reconstruction. FINDINGS: A few frothy secretions within the sphenoid sinus. Retention cyst or polyp in the RIGHT max illary sinus measuring 1.8 cm. Mild mucosal thickening in the paranasal sinuses. Normal visualized po sterior nasopharynx. RIGHT: New postoperative changes RIGHT canal wall up mastoidectomy. Small amount of fluid and soft ti ssue thickening in the RIGHT middle ear. Retraction of the tympanic membrane. Small amount of soft ti ssue thickening in the epitympanum. Chronic erosion or partial resection of the tegmen tympani extend ing posteriorly to include the roof of the mastoid antrum (tegmen mastoideum). Partial chronic erosio n or resection of the ossicles more prominent involving the incus. Stapes footplate appears grossly i ntact. Fluid with a few punctate foci of air within the mastoidectomy defect. LEFT: Mastoid air cells are well aerated. Normal external auditory canal. Ossicles are normal in appearance . Middle ear is well aerated. Normal tegmen tympani. Semicircular canals and cochlea are normal in ap pearance. Prussak's space is normal. Normal inner ear structures. Normal vestibular aqueduct. Facial nerve recess is normal. Visualized intracranial contents and posterior fossa are normal. IMPRESSION: 1. Postoperative changes RIGHT canal wall up mastoidectomy new compared to previous. 2. Resection or partial erosion of the ossicles worse involving the incus. 3. Partial resection or erosion of the tegmen tympani with bony defect extending posteriorly at the roof of the mastoid antrum. Recommend correlation with surgical history and graft in this area. 4. Associated fluid with a few locules of air within the mastoidectomy defect. 5. Mild fluid and soft tissue thickening in the middle ear and epitympanum. Retraction of the tympan ic membrane. 6. LEFT mastoid air cells and inner ear structures are normal.
== END 2023-03-18 11:48 | disposition home or self-care (01) ==
LOC: RAD 11:47
PROVIDERS: PCP Internal Medicine; Visit Provider Specialist
DX: H90.2 Conductive hearing loss, unspecified (principal); Z98.890 Other specified postprocedural states
CPT/HCPCS: 70480

== ENCOUNTER 2023-03-20 09:15 | Outpatient (CLI) | payer MEDICARE, MEDICAID, SELFPAY ==
--- NOTE | 2023-03-20 09:26 | MR_ITS ---
WS: [id number] MRI BRAIN WITH HIGH-RESOLUTION IMAGING THROUGH THE INTERNAL AUDITORY CANALS WITHOUT AND WITH CONTRAST HISTORY: CONDUCTIVE HEARING LOSS COMPARISON: CT temporal bone 03/18/2023, prior MRI 11/12/2022 TECHNIQUE: Multiplanar, multisequence imaging is performed through the brain. Additional 3 mm imaging performed in multiple planes through the internal auditory canal. Postcontrast imaging with 15 ml's of MultiHance. No acute intracranial hemorrhage, midline shift, edema or mass effect. Mild atrophy and mild small vessel ischemic disease. No acute infarct. No acute hemorrhage. Ventricles and extra-axial spaces are normal. No inferior displacement of cerebellar tonsils. Clivus and pituitary gland are normal. Patient has undergone a prior RIGHT mastoidectomy. There is extensive soft tissue now filling the mas toidectomy site. On the T1 sequence there is mixed signal at the mastectomy site. Intermediate signal on the T2 sequences. There is intermediate enhancement on the postcontrast imaging. This soft tissue component extends into the internal and external auditory canals. Soft tissue extends into the epity mpanum. There is also extension of soft tissue through a small defect in the tegmen tympani. On the p ostcontrast imaging there is increased soft tissue with mild enhancement extending through the defect and abutting the TORP and dura of the RIGHT temporal lobe. There is no abscess or abnormal enhanceme nt of the brain. The inner ear ossicles are not identified by MRI. Suspect there are erosions or abse nt ossicles. Paranasal sinuses: Mucous retention cyst RIGHT maxillary sinus. Mastoid air cells: LEFT mastoid air cells are normal. Calvarium and scalp: Normal. Visualized [place] and dural venous sinuses demonstrate no abnormality. IMPRESSION: 1. Status post RIGHT mastoidectomy. There is enhancing soft tissue filling the RIGHT mastoidectomy s ite with extension through a defect in the tegmen tympani. The soft tissue extending through the tegm en tympani does abut the dura of the RIGHT temporal lobe. There is no associated abscess or signal ab normality in the brain. This may be scar tissue/post granulation tissue or grafting. This will need t o be closely evaluated to be sure there is no underlying infection developing that would extend intra cranially. Soft tissue extending through the tegmen tympani is progressed since 11/12/2022. 2. The RIGHT inner ear ossicles are not well visualized by MRI. These were better identified on the recent temporal bone CT. 3. Mild small vessel ischemic disease.
[2023-03-20] MEDS: gadobenate dimeglumine 20 mL vial IV (10:19)
== END 2023-03-20 09:16 | disposition home or self-care (01) ==
LOC: RAD 09:16
PROVIDERS: PCP Internal Medicine; Visit Provider Specialist
DX: H90.2 Conductive hearing loss, unspecified (principal); R94.8 Abnormal results of function studies of other organs and systems; I67.82 Cerebral ischemia
CPT/HCPCS: 70553; A9577